=== PATIENT | male | born 1965 | race Caucasian/White ===

== ENCOUNTER 2019-04-22 12:06 | Day surgery (SDC) | payer BC ==
[2019-04-22] MEDS ORDERED: Xylocaine-Mpf 2% 5 Ml Vial IJ ONE (12:07)
[2019-04-22] MEDS ORDERED: Depo-Medrol 40 MG/ML IM ONE (12:07)
[2019-04-22] MEDS ORDERED: DIPRIVAN 200 MG/20 ML IV ONE (13:19)
[2019-04-22] MEDS ORDERED: Ketamine HCl 50 MG/ML ONE (13:19)
[2019-04-22] MEDS ORDERED: Lactated Ringers 1,000 ML IV ONE (14:21)
--- NOTE | 2019-04-22 14:35 | XRAY ---
Indication: Bilateral L4-S1 MBB. Intraoperative fluoroscopy was provided for 7 seconds. Single digital spot image submitted for interpretation demonstrates posterior needle tips projecting over the expected course of the left and right L4-S1 nerve roots. Correlate with intraoperative findings/report.
--- NOTE | 2019-04-22 16:54 | XRAY ---
7 seconds for fluoroscopy was used in surgery for a bilateral L4-L5 and L5-S1 MBB.
== END 2019-04-22 14:03 | disposition home or self-care (01) ==
LOC: SDC-PAIN 12:06
PROVIDERS: ATTEND Psychiatry & Neurology Pain Medicine
DX: M47.816 Spondylosis without myelopathy or radiculopathy, lumbar region (principal); I10 Essential (primary) hypertension; K21.9 Gastro-esophageal reflux disease without esophagitis; Z79.899 Other long term (current) drug therapy
CPT/HCPCS: 64493; 64494; 72020; 77002; J1030; J2704

== ENCOUNTER 2019-08-12 13:41 | Day surgery (SDC) | payer BC ==
[2019-08-12] MEDS ORDERED: Marcaine Mpf 0.5% Vial 30 Ml IJ ONE (13:42)
[2019-08-12] MEDS ORDERED: DIPRIVAN 200 MG/20 ML IV ONE (14:55)
[2019-08-12] MEDS ORDERED: Ketamine HCl 50 MG/ML ONE (14:55)
--- NOTE | 2019-08-12 17:04 | XRAY ---
7 seconds fluoroscopy time in surgery for bilateral L4-S1 MBB.
[2019-08-12] MEDS ORDERED: Lactated Ringers 1,000 ML IV ONE (17:06)
== END 2019-08-12 15:18 | disposition home or self-care (01) ==
LOC: SDC-PAIN 13:41
PROVIDERS: ATTEND Psychiatry & Neurology Pain Medicine
DX: M47.816 Spondylosis without myelopathy or radiculopathy, lumbar region (principal); K21.9 Gastro-esophageal reflux disease without esophagitis; I10 Essential (primary) hypertension; M75.20 Bicipital tendinitis, unspecified shoulder; Z79.899 Other long term (current) drug therapy
CPT/HCPCS: 64493; 64494; 72020; 77002; J2704

== ENCOUNTER 2019-09-16 13:46 | Day surgery (SDC) | payer BC ==
[2019-09-16] MEDS ORDERED: Depo-Medrol 40 MG/ML IM ONE (13:47)
[2019-09-16] MEDS ORDERED: Xylocaine 1% Vial 30 ML PF IJ ONE (13:47)
[2019-09-16] MEDS ORDERED: Marcaine 0.5% SDV 10 ML IJ ONE (13:47)
[2019-09-16] MEDS ORDERED: DIPRIVAN 200 MG/20 ML IV ONE (14:55)
[2019-09-16] MEDS ORDERED: Ketamine HCl 50 MG/ML ONE (14:55)
[2019-09-16] MEDS ORDERED: Lactated Ringers 1,000 ML IV ONE (15:32)
--- NOTE | 2019-09-16 16:29 | XRAY ---
Indication: Right L3-S1 RFA. Intraoperative fluoroscopy was provided for 23 seconds. 4 digital spot images submitted for interpretation demonstrates posterior needle tips projecting over the expected course of the right L4-S1 nerve roots. Correlate with intraoperative findings/report.
--- NOTE | 2019-09-16 16:32 | XRAY ---
23 seconds fluoroscopy time in surgery for right L4-S1 RFA.
== END 2019-09-16 15:34 | disposition home or self-care (01) ==
LOC: SDC-PAIN 13:46
PROVIDERS: ATTEND Psychiatry & Neurology Pain Medicine
DX: M47.816 Spondylosis without myelopathy or radiculopathy, lumbar region (principal); I10 Essential (primary) hypertension; K21.9 Gastro-esophageal reflux disease without esophagitis; M75.20 Bicipital tendinitis, unspecified shoulder; Z79.899 Other long term (current) drug therapy
CPT/HCPCS: 64635; 64636; 72100; 77002; J1030; J2001; J2704

== ENCOUNTER 2019-09-30 10:48 | Day surgery (SDC) | payer BC ==
[2019-09-30] MEDS ORDERED: Xylocaine 1% Vial 30 ML PF IJ ONE (10:49)
[2019-09-30] MEDS ORDERED: Depo-Medrol 40 MG/ML IM ONE (10:49)
[2019-09-30] MEDS ORDERED: Marcaine 0.5% SDV 10 ML IJ ONE (10:49)
[2019-09-30] MEDS ORDERED: DIPRIVAN 200 MG/20 ML IV ONE (12:02)
[2019-09-30] MEDS ORDERED: Ketamine HCl 50 MG/ML ONE (12:02)
--- NOTE | 2019-09-30 13:57 | XRAY ---
Indication: Left L4-S1 RFA. Intraoperative fluoroscopy was provided for 19 seconds. 3 digital spot images submitted for interpretation demonstrates posterior needle tips projecting over the expected course of the left L4-S1 nerve roots. Correlate with intraoperative findings/report.
[2019-09-30] MEDS ORDERED: Lactated Ringers 1,000 ML IV ONE (15:41)
--- NOTE | 2019-09-30 16:33 | XRAY ---
19 seconds fluoroscopy time in surgery for left L4-S1 RFA.
== END 2019-09-30 12:55 | disposition home or self-care (01) ==
LOC: SDC-PAIN 10:48
PROVIDERS: ATTEND Psychiatry & Neurology Pain Medicine
DX: M47.816 Spondylosis without myelopathy or radiculopathy, lumbar region (principal); I10 Essential (primary) hypertension; K21.9 Gastro-esophageal reflux disease without esophagitis; M75.20 Bicipital tendinitis, unspecified shoulder; Z79.899 Other long term (current) drug therapy
CPT/HCPCS: 64635; 64636; 72100; 77002; J1030; J2001; J2704

== ENCOUNTER 2020-03-02 16:36 | Emergency (ER) | payer BC ==
[2020-03-02 16:51] VITALS: BP 117/77; PULSE 70; O2SAT 98
[2020-03-02] MEDS ORDERED: BABY ASPIRIN 81 MG CHEW PO ONE (16:52)
[2020-03-02] MEDS ORDERED: Sodium Chloride 0.9% 1000 ML 1,000 ML IV STA (16:52)
--- NOTE | 2020-03-02 17:07 | ERPHSYRPT ---
- History of Present Illness Time Seen by Provider: 03/02/20 16:37 Source: patient Exam Limitations: no limitations Patient Subjective Stated Complaint: pt to ER with complaints of numbness in the R 2-4th fingers x 2 days. pt states he has some chronic back pain and uses his R hand alot for work. pt denies sob/cp. Triage Nursing Assessment: pt A&Ox4. pt ambulatory. pt denies sob/pain. pt skin pwd. Physician History: Patient is here for numbness in his second, third and fourth fingers. Patient states this is been going on for 2 to 3 days. Patient states it started gradually. Patient states it is worse while he is at work. 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 He is left-handed. He uses it to move the levers up and down. He has no falls or other trauma. No previous stroke or other strokelike symptoms today. No previous cancer. Location: right fingers (2,3,4) Quality: numbness Radiation: none Severity: moderate Duration: 2-3 days Timing: gradual Modifying factors/associated signs and symptoms: none tried Timing/Duration: day(s) Severity: mild Modifying Factors: Improves With: movement, rest Associated Symptoms: denies symptoms Allergies/Adverse Reactions: No Known Drug Allergies Allergy (Verified 03/02/20 16:51) Home Medications: Aspirin 81 mg PO DAILY 03/02/20 [History] Lisinopril 10 mg [Zestril 10 MG] 10 mg PO DAILY 03/02/20 [History] Meloxicam 15 mg PO DAILY 03/02/20 [History] Methocarbamol 750 mg PO DAILY 03/02/20 [History] Oxycodone HCl/Acetaminophen [Oxycodon-Acetaminophen 7.5-325] 1 tab PO DAILY PRN 03/02/20 [History] Hx Tetanus, Diphtheria Vaccination/Date Given: Yes Hx Influenza Vaccination/Date Given: No Hx Pneumococcal Vaccination/Date Given: No Immunizations Up to Date: Yes Travel Risk - International Travel Have you traveled outside of the country in past 3 weeks: No - Coronavirus Screening Are you exhibiting any of the following symptoms?: No Close contact with a COVID-19 positive Pt in past 14-21 Days: No - Review of Systems Constitutional: No Fever, No Chills Eyes: No Symptoms Ears, Nose, & Throat: No Symptoms Respiratory: No Cough, No Dyspnea Cardiac: No Chest Pain, No Edema, No Syncope Abdominal/Gastrointestinal: No Abdominal Pain, No Nausea, No Vomiting, No Diarrhea Genitourinary Symptoms: No Dysuria Musculoskeletal: No Back Pain, No Neck Pain Skin: No Rash Neurological: Parasthesia, No Dizziness, No Focal Weakness, No Sensory Changes Psychological: No Symptoms Endocrine: No Symptoms All Other Systems: Reviewed and Negative - Past Medical History Pertinent Past Medical History: No Neurological History: No Pertinent History ENT History: No Pertinent History Cardiac History: No Pertinent History Respiratory History: No Pertinent History Endocrine Medical History: No Pertinent History Musculoskeletal History: Fractures GI Medical History: No Pertinent History, Hernia History: No Pertinent History Psycho-Social History: No Pertinent History Male Reproductive Disorders: No Pertinent History Other Medical History: appendix out in 1977,. hernia repear 1989 - Past Surgical History Past Surgical History: Yes Neuro Surgical History: No Pertinent History Cardiac: No Pertinent History Respiratory: No Pertinent History Gastrointestinal: Appendectomy, Hernia Repair Genitourinary: No Pertinent History Musculoskeletal: No Pertinent History Male Surgical History: No Pertinent History Other Surgical History: Hernia surgery ,L Fx jaw, R foot surgery - Social History Smoking Status: Current every day smoker How long have you smoked: 20 years Exposure to second hand smoke: Yes Drug Use: none Patient Lives Alone: Yes - Nursing Vital Signs Nursing Vital Signs: Initial Vital Signs Temperature 98.3 F 03/02/20 16:43 Pulse Rate 70 03/02/20 16:43 Respiratory Rate 16 03/02/20 16:43 Blood Pressure 117/77 03/02/20 16:43 O2 Sat by Pulse Oximetry 98 03/02/20 16:43 Pain Scale Pain Intensity 0 - Physical Exam General Appearance: no apparent distress, alert Eye Exam: PERRL/EOMI, eyes nml inspection Ears, Nose, Throat Exam: normal ENT inspection, TMs normal, pharynx normal, moist mucous membranes Neck Exam: normal inspection, non-tender, supple, full range of motion Respiratory Exam: normal breath sounds, lungs clear, No respiratory distress Cardiovascular Exam: regular rate/rhythm, normal heart sounds, normal peripheral pulses Gastrointestinal/Abdomen Exam: soft, normal bowel sounds, No tenderness, No mass Back Exam: normal inspection, normal range of motion, No CVA tenderness, No vertebral tenderness Extremity Exam: normal inspection, normal range of motion, pelvis stable Neurologic Exam: alert, oriented x 3, cooperative, normal mood/affect, nml cerebellar function, nml station & gait, sensation nml, No motor deficits Skin Exam: normal color, warm, dry, No rash Lymphatic Exam: No adenopathy SpO2 Interpretation: normal SpO2: 98 Comments: 03/02/20 17:07 Mental status:The patient is alert, attentive, and oriented. Speech: clear and fluent with good repetition, comprehension, and naming. Cranial nerves: CN II: Visual william are full to confrontation. PERRLA CN III, IV, : EOMI, no nystagmus, no ptosis CN V: Facial sensation is intact to touch in all 3 divisions bilaterally. CN VII: Face is symmetric with normal eye closure and smile. CN VII: Hearing is normal to rubbing fingers CN IX, X: Palate elevates symmetrically. Phonation is normal. CN XI: Head turning and shoulder shrug are intact CN XII: Tongue is midline with normal movements and no atrophy. Motor: There is no pronator drift of out-stretched arms. Muscle bulk and tone are normal. Strength is full bilaterally. Reflexes: Reflexes are 2+ and symmetric at the biceps, triceps, knees, and ankles. Plantar responses are flexor. Sensory: Light touch sense are intact in bilateral upper and lower extremities. There is no sign of neglect. Coordination: Rapid alternating movements are intact. There is no dysmetria on [id number] and [id number]. There are no abnormal or extraneous movements. Romberg is absent. Gait/Stance: Posture is normal. Gait is steady with normal steps, base, arm swing, and turning. Heel and toe walking are normal. Tandem gait is normal. No finger numbness on exam. 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 No paresthesias on exam. - Course Nursing assessment & vital signs reviewed: Yes EKG Interpreted by Me: RATE, Sinus Rhythm Ordered Tests: Active Orders 24 hr Category Date Time Status Recreational Programs Director STAT Care 03/02/20 16:53 Active EKG-ER Only STAT Care 03/02/20 16:52 Active IV Insertion STAT Care 03/02/20 16:52 Active HEAD WITHOUT CONTRAST [CT] Stat Exams 03/02/20 16:54 Taken CBC W DIFF Stat Lab 03/02/20 17:29 Completed CMP Stat Lab 03/02/20 17:29 Completed PROTIME WITH INR Stat Lab 03/02/20 17:29 Completed PTT Stat Lab 03/02/20 17:29 Completed TROPONIN Q3H Lab 03/02/20 17:29 Received TROPONIN Q3H Lab 03/02/20 20:00 Ordered TROPONIN Q3H Lab 03/02/20 23:00 Ordered TROPONIN Q3H Lab 03/03/20 02:00 Ordered TROPONIN Q3H Lab 03/03/20 05:00 Ordered Medication Summary Discontinued Medications Generic Name Dose Route Start Last Admin Trade Name Dorianq PRN Reason Stop Dose Admin Aspirin 162 mg 03/02/20 16:52 03/02/20 17:41 Baby Aspirin 81 Mg Chew PO 03/02/20 16:53 162 mg STAT ONE Administration Aspirin Confirm 03/02/20 17:36 Baby Aspirin 81 Mg Chew Administered 03/02/20 17:37 Dose 324 mg .ROUTE .STK-MED ONE Sodium Chloride 1,000 mls @ 999 mls/hr 03/02/20 16:52 03/02/20 17:37 Sodium Chloride 0.9% 1000 Ml IV 03/02/20 17:52 999 mls/hr .Q1H1M STA Administration Sodium Chloride Confirm 03/02/20 17:36 Sodium Chloride 0.9% 1000 Ml Administered 03/02/20 17:37 Dose 1,000 mls @ ud .ROUTE .STK-MED ONE Lab/Rad Data: Laboratory Result Diagrams 03/02/20 17:29 03/02/20 17:29 Laboratory Results 03/02/20 03/02/20 03/02/20 Range/Units 17:29 17:29 17:29 WBC 9.0 (4.0-10.5) K/mm3 RBC 4.21 (4.1-5.6) M/mm3 Hgb 11.1 L (12.5-18.0) gm/dl Hct 35.8 L (42-50) % MCV 85.0 (78-100) fl MCH 26.4 (26-32) pg MCHC 31.0 L (32-36) g/dl RDW 15.0 H (11.5-14.0) % Plt Count 356 (150-450) K/mm3 MPV 9.1 (7.5-11.0) fl Gran % 72.3 H (36.0-66.0) % Eos # (Auto) 0.07 (0-0.5) Absolute Lymphs (auto) 1.83 (1.0-4.6) Absolute Monos (auto) 0.57 (0.0-1.3) Lymphocytes % 20.3 L (24.0-44.0) % Monocytes % 6.3 (0.0-12.0) % Eosinophils % 0.8 (0.00-5.0) % Basophils % 0.3 (0.0-0.4) % Absolute Granulocytes 6.51 (1.4-6.9) Basophils # 0.03 (0-0.4) PT 13.3 H (8.83-12.87) SECONDS INR 1.18 (0.8-3.0) APTT 35.3 (24.1-36.1) SECONDS Sodium 141 (137-145) mmol/L Potassium 4.0 (3.5-5.1) mmol/L Chloride 102 (98-107) mmol/L Carbon Dioxide 27 (22-30) mmol/L Anion Gap 15.6 H (5-15) MEQ/L BUN 16 (9-20) mg/dL Creatinine 0.90 (0.66-1.25) mg/dL Estimated GFR > 60.0 ML/MIN Glucose 107 H (74-106) mg/dL Calcium 9.6 (8.4-10.2) mg/dL Total Bilirubin 0.60 (0.2-1.3) mg/dL AST 18 (17-59) U/L ALT 12 (0-50) U/L Alkaline Phosphatase 71 (38-126) U/L Serum Total Protein 8.1 (6.3-8.2) g/dL Albumin 4.4 (3.5-5.0) g/dL - Progress Progress: improved Progress Note: 03/02/20 17:10 Differential diagnosis includes carpal tunnel syndrome, radiculopathy, muscle pain, stroke. - We obtain basic labs, head CT, EKG looking for any abnormalities. -Lower suspicion for stroke given that it comes and goes with rapid improvement once he stops working. 03/02/20 17:[address] negative. Patient otherwise feeling improved. Labs unremarkable. At this point in time we will discharge patient home. Close follow-up with PCP. He will need to return here for any new or changing symptoms. Counseled pt/family regarding: lab results, diagnosis, need for follow-up, rad results - Departure Departure Disposition: Home Clinical Impression: Paresthesia of finger Condition: Stable Critical Care Time: No Referrals: OBI CARPIO [Primary Care Provider] - Instructions: Paresthesias (DC)
[2020-03-02 17:32] LABS: Absolute Neutrophil Ct (ANC) 6.51 (1.4-6.9); BASOPHIL % 0.3 % (0.0-0.4); Basophil (Absolute #) 0.03 (0-0.4); Eosinophil % 0.8 % (0.00-5.0); Eosinophil (Absolute #) 0.07 (0-0.5); Hematocrit 35.8 % (42-50); Hemoglobin 11.1 gm/dl (12.5-18.0); Lymphocyte (Absolute #) 1.83 (1.0-4.6); Lymphocytes % 20.3 % (24.0-44.0); Mean Corpuscular Hemoglobin 26.4 pg (26-32); Mean Platelet Volume 9.1 fl (7.5-11.0); Monocyte (Absolute #) 0.57 (0.0-1.3); Monocytes % 6.3 % (0.0-12.0); Neutrophil % 72.3 % (36.0-66.0); Platelet Count 356 K/mm3 (150-450); Red Blood Count 4.21 M/mm3 (4.1-5.6)
[2020-03-02] MEDS ORDERED: BABY ASPIRIN 81 MG CHEW ONE (17:36)
[2020-03-02] MEDS ORDERED: Sodium Chloride 0.9% 1000 ML 1,000 ML ONE (17:36)
[2020-03-02 17:39] LABS: INR 1.18 (0.8-3.0); PROTIME 13.3 SECONDS (8.83-12.87)
[2020-03-02 17:42] LABS: PTT 35.3 SECONDS (24.1-36.1)
[2020-03-02 17:46] LABS: ALBUMIN 4.4 g/dL (3.5-5.0); ALKALINE PHOSPHATASE 71 U/L (38-126); ANION GAP 15.6 MEQ/L (5-15); BLOOD UREA NITROGEN 16 mg/dL (9-20); CHLORIDE 102 mmol/L (98-107); Calcium 9.6 mg/dL (8.4-10.2); Carbon Dioxide 27 mmol/L (22-30); Glucose 107 mg/dL (74-106); SGOT/AST 18 U/L (17-59); SGPT/ALT 12 U/L (0-50); SODIUM 141 mmol/L (137-145); Total Protein 8.1 g/dL (6.3-8.2)
--- NOTE | 2020-03-03 08:39 | XRAY ---
Indication: Numbness. Multiple contiguous axial images obtained through the head without contrast. Comparison: None Age-appropriate global atrophy. No acute intracranial hemorrhage, abnormal extra-axial fluid collection, or mass effect. Fourth ventricle is midline without hydrocephalus. Bony calvarium intact. Visualized paranasal sinuses and mastoid air cells are clear. Impression: Negative CT head without contrast exam.
== END 2020-03-02 18:05 | disposition home or self-care (01) ==
LOC: ED 16:36
DX: R20.2 Paresthesia of skin (principal); Z72.0 Tobacco use
CPT/HCPCS: 36000; 36415; 70450; 80053; 84484; 85025; 85610; 85730; 93005; 93041; 96360; 99284; A9270-GY

== ENCOUNTER 2024-01-14 06:31 | Day surgery (SDC) | payer MEDICARE, OTHER ==
[2024-01-14] MEDS ORDERED: Lactated Ringers 1,000 ML IV ONE (06:52)
[2024-01-14 06:56] VITALS: RESP 16
[2024-01-14] MEDS: Lactated Ringers 1,000 ML IV SCH (07:06)
[2024-01-14] MEDS ORDERED: Versed 2 MG/2 ML Injection ONE (07:59)
[2024-01-14] MEDS ORDERED: DIPRIVAN 200 MG/20 ML IV ONE ×2 (07:59→08:23)
--- NOTE | 2024-01-14 08:32 | OP ---
SURGERY DATE/TIME: 01/14/2024 0807 PREOPERATIVE DIAGNOSIS: Screening exam. POSTOPERATIVE DIAGNOSIS: Rectosigmoid polyp. PROCEDURE: Colonoscopy with cold forceps biopsy. SURGEON: Dr. Cespedes. ANESTHESIA: Medications given by anesthesia department. HISTORY: The patient is a 58-year-old white male patient presenting now for screening colonoscopy. He was appraised of the risks of the procedure including the risk of perforation, phlebitis, untoward reaction to medication, bleeding and missed lesions. The patient verbalized his understanding and desired to have the procedure performed. DESCRIPTION OF PROCEDURE: The patient was given the medications by the anesthesia department. He had continuous pulse oximetry, ECG monitoring and intermittent blood pressure monitoring during the examination. He was placed in the left lateral decubitus position. Digital rectal examination was performed and revealed normal anal sphincter tone, no masses and a normal prostate. The flexible Olympus pediatric colonoscope was used to intubate the rectum. A view of the colon was developed sequentially to the cecum. Upon insertion and withdrawal was noted a polyp in the rectosigmoid area this is biopsied multiple times to destroy the lesion. No other mucosal lesions being encountered. The scope was removed from the patient who tolerated the procedure well and was sent back to OP recovery in good condition. The prep was noted to be fair.
[2024-01-14 09:08] VITALS: TEMP 97
[2024-01-14 09:14] VITALS: BP 118/79; PULSE 64; O2SAT 98
== END 2024-01-14 09:27 | disposition home or self-care (01) ==
LOC: SDC 06:31
PROVIDERS: ATTEND Family Medicine
DX: Z12.11 Encounter for screening for malignant neoplasm of colon (principal); K63.5 Polyp of colon
CPT/HCPCS: J2250; J2704

== ENCOUNTER → 2024-08-05 | Day surgery (SDC) | payer MEDICARE, OTHER | LOC: SDC-PAIN 13:33 | PROVIDERS: ATTEND Psychiatry & Neurology Pain Medicine | DX: Z53.8 Procedure and treatment not carried out for other reasons (principal) ==

== ENCOUNTER 2024-10-07 11:58 | Day surgery (SDC) | payer MEDICARE, OTHER ==
[2024-10-07] MEDS ORDERED: dexAMETHasone sodium phosphate IJ ONE (11:59)
[2024-10-07] MEDS ORDERED: LIDOCAINE HCL 2% 100 MG/5 ML IJ ONE (11:59)
[2024-10-07] MEDS ORDERED: Lactated Ringers 500 ML IV ONE (12:03)
[2024-10-07] MEDS ORDERED: propofoL IV ONE (13:16)
--- NOTE | 2024-10-07 14:49 | XRAY ---
Indication: Right C2-C4 MBB. Intraoperative fluoroscopy provided for 18 seconds. 2 digital spot image submitted for interpretation demonstrates posterior needle tips projecting over expected right C2-C4 nerve roots. Correlate with intraoperative findings/report.
--- NOTE | 2024-10-07 15:00 | XRAY ---
18 seconds of fluoroscopy was used in surgery for a right C2-C4 MBB.
== END 2024-10-07 13:36 | disposition home or self-care (01) ==
LOC: SDC-PAIN 11:58
PROVIDERS: ATTEND Psychiatry & Neurology Pain Medicine
DX: M47.812 Spondylosis without myelopathy or radiculopathy, cervical region (principal)
CPT/HCPCS: 72040; 77002; J1100; J2704

== ENCOUNTER 2025-01-06 10:30 | Day surgery (SDC) | payer MEDICARE, OTHER ==
[2025-01-06] MEDS ORDERED: LIDOCAINE HCL 2% 100 MG/5 ML IJ ONE (10:31)
[2025-01-06] MEDS ORDERED: propofoL IV ONE (13:06)
--- NOTE | 2025-01-06 14:29 | XRAY ---
Indication: Left C2-C4 MBB. Intraoperative fluoroscopy provided for 15 seconds. 2 digital spot images cemented for interpretation demonstrates posterior needle tips projecting over expected left C2-C4 nerve roots. Correlate with intraoperative findings/report.
--- NOTE | 2025-01-06 14:35 | XRAY ---
15 seconds of fluoroscopy used in surgery for a left C2-C4 MBB.
[2025-01-06] MEDS ORDERED: Lactated Ringers 1,000 ML IV ONE (14:36)
== END 2025-01-06 13:42 | disposition home or self-care (01) ==
LOC: SDC-PAIN 10:30
PROVIDERS: ATTEND Psychiatry & Neurology Pain Medicine
DX: M47.812 Spondylosis without myelopathy or radiculopathy, cervical region (principal)
CPT/HCPCS: 64490; 64491; 72040; J2704

== ENCOUNTER 2025-05-12 13:28 | Day surgery (SDC) | payer MEDICARE, SELFPAY ==
[2025-05-12] MEDS ORDERED: BUPIVACAINE 0.5% VIAL IJ ONE (13:29)
[2025-05-12] MEDS ORDERED: propofoL IV ONE (15:16)
[2025-05-12] MEDS ORDERED: Lactated Ringers 1,000 ML IV ONE (16:13)
--- NOTE | 2025-05-12 17:00 | XRAY ---
Indication: Right L4-S1 MBB. Intraoperative fluoroscopy provided for 11 seconds. Single digital spot image submitted for interpretation demonstrates posterior needle tips projecting over expected right L4-S1 nerve roots. Correlate with intraoperative findings/report.
--- NOTE | 2025-05-12 17:07 | XRAY ---
11 seconds of fluoroscopy was used in surgery for a right L4-S1 MBB.
== END 2025-05-12 15:44 | disposition home or self-care (01) ==
LOC: SDC-PAIN 13:28
PROVIDERS: ATTEND Psychiatry & Neurology Pain Medicine
DX: M47.817 Spondylosis without myelopathy or radiculopathy, lumbosacral region (principal)

== ENCOUNTER 2025-06-23 10:53 | Day surgery (SDC) | payer MEDICARE, SELFPAY ==
[2025-06-23] MEDS ORDERED: methylPREDNISolone acetate IM ONE (10:54)
[2025-06-23] MEDS ORDERED: LIDOCAINE HCL 1% 50 MG/5 ML VL IJ ONE (10:54)
[2025-06-23] MEDS ORDERED: BUPIVACAINE 0.5% VIAL IJ ONE (10:54)
[2025-06-23] MEDS ORDERED: Pepcid 20 MG VIAL IV ONE (12:14)
[2025-06-23] MEDS ORDERED: propofoL IV ONE (13:28)
[2025-06-23] MEDS ORDERED: Lactated Ringers 1,000 ML IV ONE (14:04)
--- NOTE | 2025-06-23 17:03 | XRAY ---
Indication: Left L4-S1 RFA. Intraoperative fluoroscopy provided for 21 seconds. 3 digital spot image submitted for interpretation demonstrates posterior needle tips projecting over expected left L4-S1 nerve roots. Correlate with intraoperative findings/report.
--- NOTE | 2025-06-23 17:09 | XRAY ---
21 seconds of fluoroscopy was used in surgery for a left L4-S1 RFA.
== END 2025-06-23 14:05 | disposition home or self-care (01) ==
LOC: SDC-PAIN 10:53
PROVIDERS: ATTEND Psychiatry & Neurology Pain Medicine
DX: M47.817 Spondylosis without myelopathy or radiculopathy, lumbosacral region (principal)